=== PATIENT | female | born 1965 | race Hispanic/Latino ===

== ENCOUNTER 2018-08-27 15:40 | Emergency (ER) | payer SELFPAY ==
[2018-08-27] MEDS ORDERED: HYDROCODONE/ACETAMINOPHEN 10/325 MG TAB ONE (16:24)
== END 2018-08-27 17:45 | disposition home or self-care (01) ==
LOC: EDH 15:40
DX: S42.342A Displaced spiral fracture of shaft of humerus, left arm, initial encounter for closed fracture (principal); W18.39XA Other fall on same level, initial encounter; Y93.89 Activity, other specified; Y92.89 Other specified places as the place of occurrence of the external cause; Y99.8 Other external cause status
CPT/HCPCS: 73060; 73090

== ENCOUNTER 2019-12-24 16:20 | Emergency (ER) | payer OTHER | END 2019-12-24 17:10 | disposition home or self-care (01) | LOC: EDH 16:20 | DX: K02.9 Dental caries, unspecified (principal) ==

== ENCOUNTER 2023-10-18 17:41 | Emergency (ER) | payer OTHER ==
[~2023-10-18] VITALS: Ht 149.9 cm; Wt 90.7 kg
[2023-10-18 22:02] VITALS: BP 158/68; PULSE 88; RESP 16; O2SAT 99
== END 2023-10-18 22:09 | disposition home or self-care (01) ==
LOC: EDH 17:41
DX: S42.462A Displaced fracture of medial condyle of left humerus, initial encounter for closed fracture (principal); S60.212A Contusion of left wrist, initial encounter; S40.012A Contusion of left shoulder, initial encounter; S80.02XA Contusion of left knee, initial encounter; E11.9 Type 2 diabetes mellitus without complications; W01.0XXA Fall on same level from slipping, tripping and stumbling without subsequent striking against object, initial encounter; Y93.89 Activity, other specified; Y92.89 Other specified places as the place of occurrence of the external cause; Y99.8 Other external cause status
CPT/HCPCS: 29125; 73030; 73090; 73110; 73130; 73562